=== PATIENT | male | born 1955 | race Caucasian/White ===

== ENCOUNTER → 2017-05-07 | Day surgery (SDC) | payer OTHER ==
[~2017-05-07] VITALS: Ht 172.7 cm; Wt 77.8 kg
[2017-05-07 08:02] LABS: HCT 43.3 % (42.0-52.0); MCH 27.9 pg (25.0-31.0); MCHC 32.3 g/dL (32.0-36.0); MCV 86.4 fL (78.0-100.0); MPV 9.5 fL (6.0-9.5); RBC 5.01 M/uL (4.70-6.00); RDW 14.6 % (11.5-14.0); WBC 8.6 K/uL (4.0-10.5)
== END | disposition home or self-care (01) ==
LOC: FAS 07:00
PROVIDERS: Legal Medicine
DX: M23.203 Derangement of unspecified medial meniscus due to old tear or injury, right knee (principal); M62.81 Muscle weakness (generalized); B91 Sequelae of poliomyelitis; M17.11 Unilateral primary osteoarthritis, right knee; S83.511A Sprain of anterior cruciate ligament of right knee, initial encounter; M23.41 Loose body in knee, right knee; M22.41 Chondromalacia patellae, right knee; M23.91 Unspecified internal derangement of right knee; G47.30 Sleep apnea, unspecified
CPT/HCPCS: 36415; J2274; J2704; J3010